=== PATIENT | male | born 1970 | race Caucasian/White ===

== ENCOUNTER 2019-07-07 08:49 | Outpatient (CLI) | payer OTHER | END 2019-07-07 08:50 | disposition home or self-care (01) | LOC: DI 08:49 | PROVIDERS: ATTEND Internal Medicine Cardiovascular Disease | DX: R00.2 Palpitations (principal) | CPT/HCPCS: 93306 ==

== ENCOUNTER 2019-07-09 10:58 | Outpatient (CLI) | payer OTHER ==
--- NOTE | 2019-07-09 18:23 | CARDIAC PROCEDURE NOTE ---
DATE OF SERVICE: 07/09/2019 Physician: Rosenda Fenton MD, LOCATED WITHIN [facility] INDICATION: Palpitations. CARDIAC RISK FACTORS: Male gender, hypertension, elevated cholesterol. DESCRIPTION OF PROCEDURE: After signing informed consent, the patient underwent a Patricio-protocol treadmill stress test. No imaging was ordered with this test. RESTING HEART RATE: 80. PEAK HEART RATE: 158 (92% predicted maximum heart rate for age). RESTING BLOOD PRESSURE: 131/85. PEAK BLOOD PRESSURE: 160/78. The patient exercised for 9 minutes and 54 seconds on a Patricio-protocol treadmill stress test. He achieved a peak heart rate of 158, which is 92% predicted maximum heart rate and 11.6 METS. The patient had no chest pain, described mild shortness of breath, and his perceived exertion was 13/20 on a [place] scale. Oxygen saturation was 99% at rest and 95% on room air at peak. RESTING EKG: Normal sinus rhythm, early R/S transition. EKG AT PEAK: Mild T-wave flattening in the inferolateral leads. The early R/S transition is no longer seen with exertion. SUMMARY 1. Borderline abnormal resting EKG. 2. Nonspecific EKG changes occur at a good level of exercise. 3. No significant dysrhythmias were seen. 4. No imaging was ordered with this test. cc: Edvin Hagen MD TD: 07/09/2019 16:47 MTDD
== END 2019-07-09 10:59 | disposition home or self-care (01) ==
LOC: DI 10:58
PROVIDERS: ATTEND Internal Medicine Cardiovascular Disease
DX: R00.2 Palpitations (principal); R94.31 Abnormal electrocardiogram [ECG] [EKG]; I10 Essential (primary) hypertension; E78.00 Pure hypercholesterolemia, unspecified
CPT/HCPCS: 93017

== ENCOUNTER 2019-07-13 08:12 | Outpatient (CLI) | payer OTHER ==
--- NOTE | 2019-07-13 09:30 | CT Report ---
Reason: THORACIC AORTIC ANEURYSM WITHOUT RUPTURE Procedure Date: 07/13/2019 Accession Number: [id number] / [id number] Procedure: CT - CHEST WO CPT Code: FULL RESULT: EXAM: CT CHEST WITHOUT IV CONTRAST EXAM DATE: 07/13/2019 08:27 AM. CLINICAL HISTORY: Thoracic aortic aneurysm without rupture. COMPARISONS: None. TECHNIQUE: Routine helical CT imaging was performed through the chest. IV contrast: None. Reconstructions: Coronal and sagittal. In accordance with CT protocol optimization, one or more of the following dose reduction techniques were utilized for this exam: automated exposure control, adjustment of mA and/or KV based on patient size, or use of iterative reconstructive technique. FINDINGS: Lungs/Pleura: 4 mm nodular/linear medial right middle lobe pleural-based density could represent focal scarring or a nodule (6/66). 3 mm anterolateral left upper lobe solid pulmonary nodule (4/140) and 3 mm left upper lobe solid nodule (4/142). No pulmonary infiltrate or consolidation. No pleural effusion. No pneumothorax. Mediastinum: No kalina mediastinal, hilar or axillary adenopathy or mass. A mildly prominent right lower pretracheal lymph node has a short axis of 1.2 cm but is mostly fatty replaced, favoring a benign lymph node. A 0.8 x 1.8 x 0.7 cm nodule within the anterior right paracardial fat pad may represent a lymph node. It is of low density and could represent a small cyst. Non-gated images demonstrate no aneurysm of the thoracic aorta or the visualized abdominal aorta. Significant calcified aortic or arterial plaque is not demonstrated. Normal heart size. No pericardial effusion. Bones: Unremarkable. Visualized Abdomen: Unremarkable. Other: None. IMPRESSION: 1. No aneurysm of the thoracic aorta or the visualized abdominal aorta. 2. Pulmonary nodules measuring 4 mm and less. If the patient is high risk, follow-up CT could be considered at 12 months, by Fleischner Society guidelines. 3. Probably benign, mildly prominent pretracheal lymph node. A 0.8 cm short axis nodule within the right pericardial fat pad could represent a lymph node or a small cyst. [facility]
== END 2019-07-13 08:13 | disposition home or self-care (01) ==
LOC: DI 08:12
PROVIDERS: ATTEND Internal Medicine Cardiovascular Disease
DX: R91.8 Other nonspecific abnormal finding of lung field (principal); R59.0 Localized enlarged lymph nodes
CPT/HCPCS: 71250